=== PATIENT | female | born 2000 | race Two or more races ===

== ENCOUNTER 2023-01-11 19:58 | Emergency (ER) | payer MEDICAID ==
[~2023-01-11] VITALS: Ht 149.9 cm; Wt 46.0 kg
[2023-01-11 22:27] VITALS: BP 113/74
[2023-01-11] MEDS ORDERED: methylPREDNISolone ACETATE 80 MG/ML VL IM ONE (23:15)
[2023-01-11] MEDS ORDERED: diphenhdrAMINE HCL 25 MG CAP PO ONE (23:15)
== END 2023-01-11 23:50 | disposition home or self-care (01) ==
LOC: ER 19:58
DX: T78.40XA Allergy, unspecified, initial encounter (principal); Y92.89 Other specified places as the place of occurrence of the external cause
CPT/HCPCS: 96372; 99283; J1040